=== PATIENT | female | born 1980 | race African-American/Black ===

== ENCOUNTER 2022-01-14 09:39 | Emergency (ER) | payer MEDICAID ==
[~2022-01-14] VITALS: Ht 167.6 cm; Wt 61.2 kg
[2022-01-14] MEDS ORDERED: ONDANSETRON 4 MG/2 ML VIAL ONE (09:55)
[2022-01-14] MEDS ORDERED: KETOROLAC TROMETHAMINE 30 MG INJ ONE (09:56)
[2022-01-14] MEDS ORDERED: KETOROLAC TROMETHAMINE 30 MG INJ IVP ONE (10:00)
[2022-01-14] MEDS ORDERED: IV NORMAL SALINE 1000 ML BAG IV ONE ×2 (10:00→13:00)
[2022-01-14] MEDS ORDERED: ONDANSETRON 4 MG/2 ML VIAL IV ONE (10:00)
[2022-01-14 11:14] LABS: HEMATOCRIT 37.5 % (31.2-41.9); MEAN CORPUSCULAR HEMOGLOBIN 28.2 uug (24.7-32.8); PLATELET COUNT (AUTO) 359 K/uL (179-408)
[2022-01-14 11:36] LABS: CARBON DIOXIDE 24 mmol/L (21-32); CHLORIDE 106 mmol/L (98-107); CREATININE 1.1 mg/dL (0.6-1.3); GLUCOSE 101 mg/dL (74-106); POTASSIUM 3.6 mmol/L (3.5-5.1); UREA NITROGEN, BLOOD 8 mg/dL (7-18)
[2022-01-14 11:45] LABS: ALANINE AMINOTRANSFERASE 19 U/L (14-59); ALKALINE PHOSPHATASE 59 U/L (50-136); ASPARTATE AMINOTRANSFERASE 12 U/L (15-37); BILIRUBIN,DIRECT 0.1 mg/dL (0.0-0.2); BILIRUBIN,TOTAL 0.3 mg/dL (0.2-1.0); TOTAL PROTEIN, SERUM 7.6 g/dL (6.4-8.2)
[2022-01-14 11:53] LABS: LIPASE 54 U/L (73-393)
[2022-01-14 14:08] LABS: *BILIRUBIN,URIN NEGATIVE (NEGATIVE); *BLOOD, URINE 2+ (NEGATIVE); *CLARITY,URINE CLEAR (CLEAR); *COLOR,URINE YELLOW (YELLOW); *KETONES,URINE NEGATIVE (NEGATIVE); *UROBILINOGEN,URINE 0.2 E.U./dl (NORMAL); LEUKOCYTE ESTERASE ,URINE NEGATIVE (NEGATIVE); NITRITE, URINE NEGATIVE (NEGATIVE); UGLUCOSE NEGATIVE (NEGATIVE)
[2022-01-14] MEDS ORDERED: IBUP-1955 PO ×2 (14:40→15:01)
[2022-01-14] MEDS ORDERED: ONDA4TAB11 PO ×2 (14:40→15:01)
[2022-01-14] MEDS ORDERED: DICY10CA13 PO ×2 (14:40→15:01)
[2022-01-14 14:49] LABS: BACTERIA,URINE FEW /HPF (NONE SEEN); RBC,URINE 20-50 /HPF (0-3); SQUAMOUS EPITHELIAL CELL,UR FEW /HPF (NONE SEEN); WBC,URINE 0-3 /HPF (0-3)
[2022-01-14 15:54] VITALS: BP 118/70
== END 2022-01-14 15:55 | disposition home or self-care (01) ==
LOC: ER 09:39
DX: B34.9 Viral infection, unspecified (principal); R10.9 Unspecified abdominal pain; Z20.822 Contact with and (suspected) exposure to COVID-19; D25.9 Leiomyoma of uterus, unspecified; N20.0 Calculus of kidney; Z85.43 Personal history of malignant neoplasm of ovary
CPT/HCPCS: 99285; 74176; 96374; 71045; 96361; 96375; 87426; 80076; 80048; 81001; 83690; 85025; 85730; 87400; 87040 ×2; 87086; 84484; 84702; 93005; 83605; J1885; J2405; J7040 ×2; A4663